=== PATIENT | female | born 1955 | race African-American/Black ===

== ENCOUNTER 2017-05-09 12:14 | Day surgery (SDC) | payer MEDICARE, MEDICAID ==
[~2017-05-09] VITALS: Ht 185.4 cm; Wt 102.5 kg
[2017-05-09] MEDS ORDERED: BUPIVACAINE HCL/PF 0.5% (5MG/ML) 10ML ONE (12:36)
[2017-05-09] MEDS ORDERED: LIDOCAINE HCL/PF 1% 10 MG/ML 30ML VIAL ONE (12:37)
[2017-05-09] MEDS ORDERED: TRIAMCINOLONE ACETONIDE 40MG/ML 1ML VIAL ONE (12:38)
[2017-05-09] MEDS ORDERED: DEXAMETHASONE 4MG/ML 1ML VIAL ONE ×2 (12:38→14:16)
[2017-05-09] MEDS ORDERED: BACITRACIN ZINC 15GM TUBE TOP ONE (12:39)
[2017-05-09] MEDS ORDERED: GENTAMICIN SULF 40MG/ML 2ML VIAL ONE (12:39)
[2017-05-09] MEDS ORDERED: LACTATED RINGERS 1,000 ML IV SCH (12:45)
[2017-05-09] MEDS ORDERED: GLYCOPYRROLATE 0.2 MG/ML 2ML VIAL ONE (13:22)
[2017-05-09] MEDS ORDERED: MIDAZOLAM HCL 2 MG/2 ML VIAL ONE (13:22)
[2017-05-09] MEDS ORDERED: FENTANYL CITRATE/PF 50MCG/ML 2ML VIAL ONE (13:22)
[2017-05-09] MEDS ORDERED: LIDOCAINE HCL/PF 1% 10 MG/ML 5ML VIAL ONE (13:22)
[2017-05-09] MEDS ORDERED: PROPOFOL 200MG/20ML VIAL IV ONE ×2 (13:22→13:59)
[2017-05-09] MEDS ORDERED: METOCLOPRAMIDE HCL 10MG/2ML VIAL ONE (13:23)
[2017-05-09] MEDS ORDERED: ONDANSETRON HCL 4MG/2ML VIAL ONE (13:23)
[2017-05-09] MEDS ORDERED: CEFAZOLIN SODIUM 1000MG/VIAL ONE (13:32)
[2017-05-09] MEDS ORDERED: ESMOLOL HCL 10MG/ML 10ML VIAL IV ONE (13:59)
[2017-05-09] MEDS ORDERED: KETOROLAC 30MG/ML VIAL ONE (14:16)
[2017-05-09] MEDS ORDERED: SODIUM CHLORIDE 0.9% 1,000 ML IV ONE (14:44)
[2017-05-09] MEDS ORDERED: ONDANSETRON HCL 4MG/2ML VIAL IV PRN (14:45)
[2017-05-09] MEDS ORDERED: MEPERIDINE HCL/PF 25MG/ML CPJ IV PRN (14:45)
== END 2017-05-09 16:15 | disposition home or self-care (01) ==
LOC: OR 12:14
PROVIDERS: ATTEND Podiatrist Foot & Ankle Surgery
DX: M20.22 Hallux rigidus, left foot (principal); I10 Essential (primary) hypertension; Z90.710 Acquired absence of both cervix and uterus; E66.3 Overweight
CPT/HCPCS: 28289; 73630; 88304; 88311; J0690; J1100; J1580; J1885; J2250; J2405; J2765; J3010; J3301; J3490; J7120; J2704

== ENCOUNTER 2018-03-29 12:23 | Emergency (ER) | payer MEDICARE, MEDICAID ==
[~2018-03-29] VITALS: Ht 185.4 cm; Wt 106.0 kg
[2018-03-29] MEDS ORDERED: TRAMADOL 50MG TABLET PO ONE (14:00)
[2018-03-29 15:10] VITALS: BP 148/76
== END 2018-03-29 15:12 | disposition home or self-care (01) ==
LOC: ER 12:23
DX: S39.012A Strain of muscle, fascia and tendon of lower back, initial encounter (principal); S16.1XXA Strain of muscle, fascia and tendon at neck level, initial encounter; I10 Essential (primary) hypertension; C96.9 Malignant neoplasm of lymphoid, hematopoietic and related tissue, unspecified; Z92.21 Personal history of antineoplastic chemotherapy; V49.40XA Driver injured in collision with unspecified motor vehicles in traffic accident, initial encounter; Y93.89 Activity, other specified; Y92.410 Unspecified street and highway as the place of occurrence of the external cause
CPT/HCPCS: 99283